=== PATIENT | female | born 1980 | race Two or more races ===

== ENCOUNTER 2023-07-04 10:01 | Emergency (ER) | payer OTHER ==
[~2023-07-04] VITALS: Ht 167.6 cm; Wt 86.2 kg
[2023-07-04] MEDS ORDERED: PROMETHAZINE HCL 25 MG/ML AMPUL IM STA (10:42)
[2023-07-04] MEDS ORDERED: MEPERIDINE HCL/PF 50 MG/ML VIAL IM STA (10:42)
[2023-07-04 10:55] LABS: HEMATOCRIT 37.5 % (36.0-45.00); HEMOGLOBIN 12.6 g/dL (12.0-15.00); MEAN CELL VOLUME 81.7 fL (80.00-100.00); MEAN CORPUSCULAR HEMOGLOBIN 27.4 pg (27.00-32.0); MEAN CORPUSCULAR HGB CONC 33.5 g/dl (32.0-36.0); PLATELET COUNT 354 K/uL (150-450); RED BLOOD COUNT 4.59 M/uL (4.00-6.00); RED CELL DISTRIBUTION WIDTH 14.5 % (11.5-14.5)
[2023-07-04 11:43] LABS: CALCIUM 8.9 mg/dL (8.5-10.1); CREATININE SERUM 0.64 mg/dL (0.55-1.02); GFR 101.76; POTASSIUM 3.4 mEq/L (3.5-5.1)
== END 2023-07-04 13:50 | disposition home or self-care (01) ==
LOC: ER 10:01
PROVIDERS: General Practice
DX: M54.9 Dorsalgia, unspecified (principal); Z91.012 Allergy to eggs; Z91.011 Allergy to milk products